=== PATIENT | male | born 1975 | race Caucasian/White ===

== ENCOUNTER 2017-04-08 01:57 | Emergency (ER) | payer MEDICAID ==
[~2017-04-08] VITALS: Ht 182.9 cm; Wt 104.5 kg
[2017-04-08 02:15] VITALS: Ht 182.9 cm; Wt 104.5 kg
[2017-04-08] MEDS ORDERED: KETOROLAC 60 MG INJ IM STA (02:37)
--- NOTE | 2017-04-08 03:18 | ERD ---
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 Patient's complaining of pain throbbing, 6/10 scale, is worse upon movement and taking a deep breath. Patient did not take any medications to help with symptoms. ROS All systems reviewed and are negative except as per history of present illness. Medications Home Meds Reported Medications [none] Unknown Strength No Conflict Check 04/08/17 Allergies Allergies: Coded Allergies: No Known Allergy (Unverified , 05/05/12) PMhx/Soc History of Surgery: Yes (APPENDECTOMY ) Anesthesia Reaction: No Hx Neurological Disorder: No Hx Respiratory Disorders: No Hx Cardiac Disorders: No Hx Psychiatric Problems: No Hx Miscellaneous Medical Probl: No Hx Alcohol Use: Yes (DRINKS OCCASIONALLY ) Hx Substance Use: Yes ("meth years ago") Hx Tobacco Use: Yes (SMOKES 1 CIGARETTE A DAY) Smoking Status: Current every day smoker FmHx Family History: No coronary disease, No diabetes, No other Physical Exam Vitals Vital Signs Date Time Temp Pulse Resp B/P Pulse Ox O2 Delivery O2 Flow Rate FiO2 04/08/17 02:15 97.4 85 20 144/86 98 Physical Exam GENERAL: The patient is well developed and appropriate for usual state of health, in no apparent distress. CHEST: Clear to auscultation bilaterally. There are no rales, wheezes or rhonchi. Tenderness on palpation on the right fourth fifth and sixth anterior ribs. HEART: Regular rate and rhythm. No murmurs, clicks, rubs or gallops. No S3 or S4. ABDOMEN: Soft, nontender and nondistended. Good bowel sounds. No rebound or guarding. No gross peritonitis. No gross organomegaly or masses. No Pratt sign or McBurney point tenderness. BACK: No midline or flank tenderness. EXTREMITIES: Equal pulses bilaterally. There is no peripheral clubbing, cyanosis or edema. No focal swelling or erythema. Full range of motion. Grossly neurovascularly intact. NEURO: Alert and oriented. Cranial nerves 2-12 intact. Motor strength in all 4 extremities with 5/5 strength. Sensation grossly intact. Normal speech and gait. SKIN: There is no apparent rash or petechia. The skin is warm and dry. HEMATOLOGIC AND LYMPHATIC: There is no evidence of excessive bruising or lymphedema. No gross cervical, axillary, or inguinal lymphadenopathy. Results 24 hrs Current Medications Medications (Trade) Dose Ordered Sig/Jessi Route PRN Reason Start Time Stop Time Status Last Admin Dose Admin Ketorolac Tromethamine (Toradol) 60 mg ONCE STAT IM 04/08/17 02:37 04/08/17 02:39 DC 04/08/17 02:54 Patient was given medication for pain here in emergency department, after treatment, patient verbalized feeling much better. Patient's pain is improved. EKG was done, read by me and is normal sinus rhythm at a rate of 67, normal axis , there is no ST changes or changes in the EKG that indicates any cardiac emergencies at this time. Patient's EKG was also reviewed by Dr. Partida. Impression: no acute findings on EKG PROCEDURE: XR Chest. CLINICAL INDICATION: Right rib pain TECHNIQUE: AP Portable chest. COMPARISON: No pertinent prior examinations were submitted for comparison. FINDINGS: The cardiomediastinal silhouette is normal. The lungs are clear. The osseous structures are unremarkable. IMPRESSION: No acute findings. RPTAT: HIKT .Cesar Garcia MD, Date Time Electronically viewed and signed by .Cesar aGrcia MD, on 04/08/2017 03:24 .T/ CC: ANAT JONES NP PROCEDURE: XR Ribs. CLINICAL INDICATION: Chest pain. TECHNIQUE: 2 frontal and oblique views of the right ribs were obtained. The images were reviewed on a PACS workstation. COMPARISON: None. FINDINGS: There is no evidence for a rib fracture. The underlying lung parenchyma is intact without evidence for pneumothorax. IMPRESSION: No acute rib fracture identified. .David Gan MD, MD Date Time Electronically viewed and signed by .David Gan MD, MD on 04/08/2017 03:25 .T/ CC: ANAT JONES NP Procedures/MDM Medical Decision Making: Patient symptoms of rib pain consistent with rib strain , muscle strain. There is low suspicion for cardiopulmonary emergencies at this time. Patient has low risk factors. EKG is normal, there is no changes in the EKG that indicates cardiac emergencies. Chest X-ray does not show cardiopulmonary emergencies at this time. Rib series xray does not show any fractures. There is low suspicion for aortic aneurysm, myocardial infarction, pneumothorax, pleural effusion, pulmonary embolism, or any other cardiopulmonary emergencies at this time. Patient was given for [place] for pain, ibuprofen for severe pain. Patient is advised to avoid heavy lifting rest, patient was advised to return to emergency department for any worsening symptoms. Dispostion: Home. Stable Departure Diagnosis: Primary Impression: Rib pain Condition: Stable Patient Instructions: Rib Contusion Additional Instructions: Patient was given for [place] for pain, ibuprofen for severe pain. Patient is advised to avoid heavy lifting rest, patient was advised to return to emergency department for any worsening symptoms. ANAT JONES NP Apr 08, 2017 03:18
--- NOTE | 2017-04-08 03:24 | RADRPT ---
PROCEDURE: XR Chest. CLINICAL INDICATION: Right rib pain TECHNIQUE: AP Portable chest. COMPARISON: No pertinent prior examinations were submitted for comparison. FINDINGS: The cardiomediastinal silhouette is normal. The lungs are clear. The osseous structures are unrema rkable. IMPRESSION: No acute findings. RPTAT: HIKT .Cesar Garcia MD, MD Date Time Electronically viewed and signed by .Cesar Garcia MD, MD on 04/08/2017 03:24 .T/
--- NOTE | 2017-04-08 03:25 | RADRPT ---
PROCEDURE: XR Ribs. CLINICAL INDICATION: Chest pain. TECHNIQUE: 2 frontal and oblique views of the right ribs were obtained. The images were reviewed on a PACS workstation. COMPARISON: None. FINDINGS: There is no evidence for a rib fracture. The underlying lung parenchyma is intact without evidence f or pneumothorax. IMPRESSION: No acute rib fracture identified. .David Gan MD, Date Time Electronically viewed and signed by .David Gan MD, on 04/08/2017 03:25 .T/
[2017-04-08] MEDS ORDERED: HYDR-906 PO (04:07)
[2017-04-08] MEDS ORDERED: IBUP-1542 PO (04:07)
== END 2017-04-08 04:12 | disposition home or self-care (01) ==
LOC: FTE 01:57
DX: R07.81 Pleurodynia (principal); F17.210 Nicotine dependence, cigarettes, uncomplicated
CPT/HCPCS: 71010; 71100; 93005; J1885; 96372